=== PATIENT | female | born 1955 | race Caucasian/White ===

== ENCOUNTER → 2016-11-04 | Outpatient (CLI) | payer OTHER ==
[~2016-11-04] MED LIST: AUGMENTIN 875-1 EACH PO; AUGMENTIN 875875 MG PO; BISCOLAX10 MG RECTAL; CIPRO500 MG PO; COLACE100 MG PO; DICLOFENAC TOP TOP; DOCUSATE; DOCUSATE PO; ENDOCET 10-3251 EACH PO; ENOXAPARIN40 MG/0.1 SUBQ; FLAGYL500 MG PO; FLOMAX0.4 MG PO; FLUCONAZOLE200 MG PO; KLONOPIN1 MG PO; LEVEMIR SUBQ; LEVEMIR100 UNIT/1 SUBQ; LISINOPRIL20 MG PO; MAG-AL LIQUID30 ML PO; METFORMIN HCL500 MG PO; MIRALAX17 GM PO; NOVOLOG100 UNIT/1 SUBQ; OXYBUTYNIN 5 MG5 M2 PO; PERCOCET 10-321 EACH PO; PROBIOTIC1 EAC1 PO; PROZAC20 MG PO; REMERON15 MG PO; SENNA PO; SILVER SULFADIAZINE TOP; TYLENOL325 MG PO; XANAX1 MG PO; [UNRECOGNIZED DRUG - CODE] PO
== END ==
LOC: HYPER 11-02 13:10
DX: L89.154 Pressure ulcer of sacral region, stage 4 (principal); I10 Essential (primary) hypertension; E11.9 Type 2 diabetes mellitus without complications; E66.01 Morbid (severe) obesity due to excess calories; Z79.84 Long term (current) use of oral hypoglycemic drugs; Z79.4 Long term (current) use of insulin; Z85.44 Personal history of malignant neoplasm of other female genital organs; Z89.511 Acquired absence of right leg below knee; Z87.891 Personal history of nicotine dependence

== ENCOUNTER → 2016-11-24 | Outpatient (CLI) | payer OTHER | LOC: HYPER 07:04 | DX: L89.154 Pressure ulcer of sacral region, stage 4 (principal); E11.622 Type 2 diabetes mellitus with other skin ulcer; I10 Essential (primary) hypertension; E66.01 Morbid (severe) obesity due to excess calories; Z79.84 Long term (current) use of oral hypoglycemic drugs; Z79.4 Long term (current) use of insulin; Z85.44 Personal history of malignant neoplasm of other female genital organs; Z89.511 Acquired absence of right leg below knee; Z87.891 Personal history of nicotine dependence ==

== ENCOUNTER → 2016-12-14 | Outpatient (CLI) | payer OTHER | LOC: HYPER 07:09 | DX: E11.622 Type 2 diabetes mellitus with other skin ulcer (principal); L89.154 Pressure ulcer of sacral region, stage 4; I10 Essential (primary) hypertension; E66.01 Morbid (severe) obesity due to excess calories; E43 Unspecified severe protein-calorie malnutrition; Z79.84 Long term (current) use of oral hypoglycemic drugs; Z79.4 Long term (current) use of insulin; Z85.44 Personal history of malignant neoplasm of other female genital organs; Z87.891 Personal history of nicotine dependence ==

== ENCOUNTER → 2017-01-15 | Outpatient (CLI) | payer OTHER | LOC: HYPER 08:10 | DX: L89.154 Pressure ulcer of sacral region, stage 4 (principal); E11.622 Type 2 diabetes mellitus with other skin ulcer; E66.01 Morbid (severe) obesity due to excess calories; I10 Essential (primary) hypertension; Z79.84 Long term (current) use of oral hypoglycemic drugs; Z79.4 Long term (current) use of insulin; Z85.44 Personal history of malignant neoplasm of other female genital organs; Z89.511 Acquired absence of right leg below knee; Z87.891 Personal history of nicotine dependence; Z68.41 Body mass index [BMI] 40.0-44.9, adult ==

== ENCOUNTER → 2017-02-05 | Outpatient (CLI) | payer OTHER | LOC: HYPER 01-29 07:51 | DX: E11.622 Type 2 diabetes mellitus with other skin ulcer (principal); L89.154 Pressure ulcer of sacral region, stage 4; L98.491 Non-pressure chronic ulcer of skin of other sites limited to breakdown of skin; I10 Essential (primary) hypertension; E66.01 Morbid (severe) obesity due to excess calories; G89.29 Other chronic pain; E43 Unspecified severe protein-calorie malnutrition; Z79.84 Long term (current) use of oral hypoglycemic drugs; Z79.4 Long term (current) use of insulin; Z85.44 Personal history of malignant neoplasm of other female genital organs; Z68.41 Body mass index [BMI] 40.0-44.9, adult; Z87.891 Personal history of nicotine dependence; Z89.511 Acquired absence of right leg below knee ==

== ENCOUNTER 2017-02-13 10:02 | Inpatient (IN) | payer OTHER ==
[~2017-02-13] VITALS: Ht 188 cm; Wt 136.1 kg
--- NOTE | ~2017-02-13 | EKG ---
[address] [employer] [place] [address] ELECTROCARDIOGRAM REPORT Name: WALTER TINEO Room #: 429-P ADM IN M.R.#: [id number] Admission: 02/13/17 Attend Phys: Osmin Oliveira DO Discharge: Date of : 51 Report #: [id number] THIS REPORT FOR: //name// [facility] ED Test Date: 2017-02-13 Test Time: 11:10:22 Pat Name: WALTER TINEO Department: Room: 429 Gender: F Sr Technical Sales Consultant: riky darnell : 1955 Requested By: Doug Maxwell Order Number: [id number] MD: Abdiaziz Arambula Measurements Intervals [place] Rate: 104 P: 53 [place]: 163 QRS: 16 QRSD: 89 T: 21 QT: 325 QTc: 428 Interpretive Statements Sinus tachycardia Nonspecific T abnormalities, anterior leads Compared to ECG 08/21/2016 21:25:42 No significant change was found Electronically Signed On 02-15-2017 9:11:20 CDT by Abdiaziz Arambula [email or web address] <ELECTRONICALLY SIGNED> By: Abdiaziz Arambula MD, [facility] 02/15/17 0911 1110 1110 Abdiaziz Arambula MD, [facility] /EPI
[2017-02-13 10:04] VITALS: BP 149/85
[2017-02-13] MEDS ORDERED: OXYCONTIN10 M1 PO (11:08)
[2017-02-13 11:20] LABS: ABSOLUTE NEUTROPHILS 9.5 thou/uL (1.4-8.2); BASOPHILS 0.5 % (0.0-2.0); EOSINOPHILS 0.5 % (0.0-3.0); HEMATOCRIT 37.1 % (37.0-47.0); HEMOGLOBIN 12.3 gm/dL (12.0-15.0); LYMPHOCYTES 10.9 % (24.0-44.0); MANUAL DIFF NO; MCH 30.6 pg (26.0-34.0); MCHC 33.1 g/dL (28.0-37.0); MCV 92.4 fL (80.0-100.0); MONOCYTES 1.9 % (1.0-8.0); PLATELET COUNT 178 thou/uL (150-400); POLYS 86.2 % (36.0-66.0); RBC 4.02 mil/uL (4.20-5.00); RDW 15.3 % (10.5-14.5)
[2017-02-13 11:27] LABS: ANION GAP 7 mmol/L (7-16); BUN 24 mg/dL (7-18); CALCIUM 8.9 mg/dL (8.5-10.1); CHLORIDE 102 mmol/L (98-107); CO2 31 mmol/L (21-32); GLUCOSE 212 mg/dL (74-106); POTASSIUM 5.3 mmol/L (3.5-5.1); SODIUM 140 mmol/L (136-145)
[2017-02-13 11:30] LABS: URINE BILIRUBIN NEGATIVE (Negative); URINE BLOOD NEGATIVE (Negative); URINE COLOR YELLOW; URINE GLUCOSE-RANDOM* NEGATIVE (Negative); URINE KETONES NEGATIVE (Negative); URINE LEUKOCYTES-REFLEX 1+ (Negative); URINE PROTEIN (DIPSTICK) TRACE (Negative); URINE SPECIFIC GRAVITY >= 1.030 (1.003-1.035); URINE UROBILINOGEN 0.2 E.U./dl (0.2-1.0)
[2017-02-13 11:33] LABS: ALBUMIN 3.5 g/dL (3.4-5.0); ALKALINE PHOSPHATASE 134 U/L (46-116); SGOT 30 U/L (15-37); SGPT 39 U/L (30-65); TOTAL BILIRUBIN 0.3 mg/dL (<0.1-1.0); TOTAL PROTEIN 7.8 g/dL (6.4-8.2); TROPONIN-I < 0.04 ng/mL (<0.04-0.07)
[2017-02-13 11:39] LABS: SQUAMOUS 0-3 Few /LPF (0-3)
[2017-02-13 11:40] LABS: CASTS None Seen /LPF (None Seen); CRYSTALS None Seen /LPF (None Seen); URINE RBC None Seen /HPF (0-2)
[2017-02-13 11:45] LABS: DIRECT BILIRUBIN < 0.1 mg/dL (<0.1-0.3)
[2017-02-13 14:52] VITALS: BP 150/86
[2017-02-13] MEDS ORDERED: OXYCODONE HCL 55 MG PO (18:42)
[2017-02-13] MEDS ORDERED: OXYCODONE HCL10 MG PO (18:43)
[2017-02-13 20:00] VITALS: BP 153/72
[2017-02-14 04:00] VITALS: BP 151/70
[2017-02-14 04:37] LABS: CALCIUM 8.5 mg/dL (8.5-10.1); CREATININE 0.9 mg/dL (0.6-1.0); POTASSIUM 4.9 mmol/L (3.5-5.1)
[2017-02-14 04:50] LABS: HEMATOCRIT 38.3 % (37.0-47.0); HEMOGLOBIN 12.7 gm/dL (12.0-15.0); MCH 30.2 pg (26.0-34.0); MCHC 33.2 g/dL (28.0-37.0); MCV 91.1 fL (80.0-100.0); PLATELET COUNT 187 thou/uL (150-400); RBC 4.21 mil/uL (4.20-5.00); RDW 15.2 % (10.5-14.5)
[2017-02-14 05:24] LABS: MANUAL DIFF YES
[2017-02-14 07:08] LABS: ABSOLUTE NEUTROPHILS 11.3 thou/uL (1.4-8.2); PLATELET ESTIMATE NORMAL; TOTAL CELL COUNT 100
[2017-02-14 10:39] VITALS: BP 122/59
[2017-02-14 17:24] VITALS: BP 117/65
[2017-02-14 19:55] VITALS: BP 181/105
[2017-02-15 05:14] VITALS: BP 155/92
[2017-02-15 08:26] VITALS: BP 154/108
[2017-02-15 09:28] LABS: ALBUMIN 3.2 g/dL (3.4-5.0); ALKALINE PHOSPHATASE 107 U/L (46-116); DIRECT BILIRUBIN < 0.1 mg/dL (<0.1-0.3); SGOT 20 U/L (15-37); SGPT 28 U/L (30-65); TOTAL BILIRUBIN 0.2 mg/dL (<0.1-1.0)
[2017-02-15 19:47] VITALS: BP 151/83
[2017-02-16 08:36] VITALS: BP 168/88
[2017-02-16] MEDS ORDERED: CEFUROXIME500 MG PO (09:55)
[2017-02-16] MEDS ORDERED: NORVASC10 MG PO (09:56)
[2017-02-16 11:42] VITALS: BP 168/88
[2017-02-16 15:29] VITALS: BP 168/88
[2017-02-16 15:34] VITALS: BP 168/88
== END 2017-02-16 17:28 | disposition home health service (06) | DRG 871 ==
LOC: ER 10:02 → 4E 13:00 → EROBS 13:00 → 4E 14:29
PROVIDERS: Emergency Medicine; Internal Medicine Geriatric Medicine; Psychiatry & Neurology Neurology
DX: A41.9 Sepsis, unspecified organism (principal); J96.00 Acute respiratory failure, unspecified whether with hypoxia or hypercapnia; N39.0 Urinary tract infection, site not specified; D32.9 Benign neoplasm of meninges, unspecified; H53.149 Visual discomfort, unspecified; K42.9 Umbilical hernia without obstruction or gangrene; E11.51 Type 2 diabetes mellitus with diabetic peripheral angiopathy without gangrene; C51.9 Malignant neoplasm of vulva, unspecified; G43.909 Migraine, unspecified, not intractable, without status migrainosus; I10 Essential (primary) hypertension; Z89.511 Acquired absence of right leg below knee; Z88.1 Allergy status to other antibiotic agents; Z87.891 Personal history of nicotine dependence; Z79.899 Other long term (current) drug therapy
CPT/HCPCS: 10183

== ENCOUNTER → 2017-03-01 | Outpatient (CLI) | payer OTHER ==
[~2017-03-01] MED LIST changes: +CEFUROXIME500 MG PO; +NORVASC10 MG PO; +OXYCODONE HCL 55 MG PO; +OXYCODONE HCL10 MG PO; +OXYCONTIN10 M1 PO
== END ==
LOC: HYPER 06:49
DX: E11.622 Type 2 diabetes mellitus with other skin ulcer (principal); L89.154 Pressure ulcer of sacral region, stage 4; L98.491 Non-pressure chronic ulcer of skin of other sites limited to breakdown of skin; I10 Essential (primary) hypertension; E66.01 Morbid (severe) obesity due to excess calories; G89.29 Other chronic pain; F41.9 Anxiety disorder, unspecified; E43 Unspecified severe protein-calorie malnutrition; Z85.44 Personal history of malignant neoplasm of other female genital organs; Z79.4 Long term (current) use of insulin; Z68.41 Body mass index [BMI] 40.0-44.9, adult; Z79.84 Long term (current) use of oral hypoglycemic drugs; Z87.891 Personal history of nicotine dependence; Z89.511 Acquired absence of right leg below knee

== ENCOUNTER → 2017-03-26 | Outpatient (CLI) | payer OTHER | LOC: HYPER 07:51 | DX: E11.622 Type 2 diabetes mellitus with other skin ulcer (principal); L98.491 Non-pressure chronic ulcer of skin of other sites limited to breakdown of skin; L89.154 Pressure ulcer of sacral region, stage 4; E66.01 Morbid (severe) obesity due to excess calories; I10 Essential (primary) hypertension; Z85.44 Personal history of malignant neoplasm of other female genital organs; Z89.511 Acquired absence of right leg below knee; Z87.891 Personal history of nicotine dependence; Z79.4 Long term (current) use of insulin; Z79.84 Long term (current) use of oral hypoglycemic drugs ==

== ENCOUNTER → 2017-05-12 | Outpatient (CLI) | payer OTHER | LOC: HYPER 04-19 07:48 | DX: L89.154 Pressure ulcer of sacral region, stage 4 (principal); L98.491 Non-pressure chronic ulcer of skin of other sites limited to breakdown of skin; I10 Essential (primary) hypertension; Z79.84 Long term (current) use of oral hypoglycemic drugs; Z79.4 Long term (current) use of insulin; E66.01 Morbid (severe) obesity due to excess calories; Z87.891 Personal history of nicotine dependence ==